=== PATIENT | female | born 1975 | race Caucasian/White ===

== ENCOUNTER → 2017-05-08 14:35 | Outpatient (CLI) | payer OTHER, SELFPAY ==
[2017-05-15 08:14] LABS: HPV HC, High Risk Negative (Negative); HPV Reflexed? YES, CHARGE PATIENT
== END ==
PROVIDERS: Family Provider Family Medicine; PCP Family Medicine; Visit Provider Obstetrics & Gynecology
DX: Z12.4 Encounter for screening for malignant neoplasm of cervix (principal)
CPT/HCPCS: 87624; 88175; G0145

== ENCOUNTER → 2018-08-11 13:59 | Outpatient (CLI) | payer OTHER, SELFPAY ==
[2018-08-19 09:11] LABS: HPV HC, High Risk Negative (Negative); HPV Reflexed? YES, CHARGE PATIENT
== END ==
PROVIDERS: Visit Provider Obstetrics & Gynecology
DX: Z12.4 Encounter for screening for malignant neoplasm of cervix (principal)
CPT/HCPCS: 87624; 88175; G0145

== ENCOUNTER → 2020-01-17 | Outpatient (CLI) | payer OTHER, SELFPAY ==
[2020-01-20 16:49] LABS: HPV APTIMA, High Risk Negative (Negative); HPV Reflexed? YES, CHARGE PATIENT
== END | disposition home or self-care (01) ==
LOC: LABSPEC 15:48
PROVIDERS: Visit Provider Student in an Organized Health Care Education/Training Program
DX: Z12.4 Encounter for screening for malignant neoplasm of cervix (principal)
CPT/HCPCS: 87624; 88175; G0145

== ENCOUNTER 2021-06-04 12:14 | Outpatient (CLI) | payer OTHER, SELFPAY ==
[2021-06-11 15:42] LABS: HPV APTIMA, High Risk Negative (Negative)
== END 2021-06-04 23:59 | disposition home or self-care (01) ==
LOC: LABSPEC 12:26
PROVIDERS: Visit Provider Student in an Organized Health Care Education/Training Program
DX: Z12.4 Encounter for screening for malignant neoplasm of cervix (principal)
CPT/HCPCS: 87624; 88175; G0145

== ENCOUNTER → 2023-10-22 | Outpatient (CLI) | payer OTHER, SELFPAY ==
--- NOTE | 2023-10-22 08:02 | BI_ITS ---
MAMMOGRAPHY - BILATERAL SCREENING REASON FOR EXAM: Female, 48 years old. Routine annual screening examination. PERTINENT HISTORY: Non-contributory. History of prior right breast implant. TECHNIQUE: Digital bilateral breast julieth (3D mammographic acquisition) in the CC and MLO projections. 2-D mediolateral oblique (MLO) and craniocaudad (CC) views of both breasts were obtained. CAD: Full Field Digital Mammography with Computer Added Detection was performed. COMPARISON: Comparison is made with prior outside examination of April 27, 2020. FINDINGS: Breast Composition: The breasts are heterogeneously dense, which may obscure small masses. There are no dominant masses or suspicious calcifications. Stable appearance of the right breast implant. Stable densely calcified nodule in the deep upper central portion of the left breast. No other significant abnormalities are identified. There has been no significant change since the prior study. BI/SCRN MAMM (CAD)W/JULIETH BILAT IMPRESSION: Stable bilateral screening mammogram. Yearly follow-up mammogram recommended. (A) ASSESSMENT CATEGORY: BIRADS Category 2: Benign. A letter regarding these results will be sent to the patient by the facility within 30 days. Approximately 10% of breast cancers are not detected by mammography. A normal mammogram should not delay biopsy of a clinically suspicious abnormality. [id number] Electronically Signed: James Rincon MD at 10:04 EDT ,
== END | disposition home or self-care (01) ==
LOC: OPBI 08:00
DX: Z12.31 Encounter for screening mammogram for malignant neoplasm of breast (principal)
CPT/HCPCS: 77063; 77067

== ENCOUNTER → 2023-10-23 | Outpatient (CLI) | payer OTHER, SELFPAY ==
--- NOTE | 2023-10-23 14:01 | US_ITS ---
STUDY: ULTRASOUND BREAST - RIGHT REASON FOR EXAM: Female, 48 years old. Right breast density. TECHNIQUE: Axial and longitudinal images of the RIGHT breast were performed with a high resolution ultrasound transducer. # OF IMAGES: 37 COMPARISON: Comparison is made with prior mammogram dated October 22, 2023. FINDINGS: RIGHT Breast: The upper half of the right breast was examined with ultrasound. There is a 1.2 cm x 0.9 cm x 0.3 cm fat-containing lymph node at the 11:00 position breast at 3 cm from the nipple. There is also evidence of a 5 mm x 6 mm x 5 mm cyst at the 3:00 position of the breast at 2 cm from the nipple. There is visualization of the breast implant. US/Breast Limited Unilateral IMPRESSION: The mammographic abnormality corresponds to a 5 mm x 6 mm x 5 mm cyst at the 3:00 position of the breast at 2 cm from nipple. There is also evidence of a benign appearing lymph node at the 11:00 position breast at 3 cm from the nipple. ASSESSMENT CATEGORY: BIRADS Category 2: Benign. A letter regarding these results will be sent to the patient by the facility within 30 days. Electronically Signed: James Rincon MD at 14:46 EDT ,
== END | disposition home or self-care (01) ==
DX: R92.8 Other abnormal and inconclusive findings on diagnostic imaging of breast (principal)
CPT/HCPCS: 76642

== ENCOUNTER → 2024-10-24 | Outpatient (CLI) | payer OTHER, SELFPAY ==
--- NOTE | 2024-10-24 15:44 | BI_ITS ---
EXAM: SCRN MAMM (CAD)W/JULIETH BILAT DATE: 10/24/2024 CLINICAL HISTORY: F, Age 49 y/o , SCREENING No family history. Right breast implant. TECHNIQUE: SCRN MAMM (CAD)W/JULIETH BILAT COMPARISON: Prior exam(s) dated October 22, 2023.. FINDINGS: TISSUE DENSITY: Must pick one of these options! Bilateral Breast Mammographic Findings: No significant masses, calcifications or other abnormalities are identified. There is a stable 1.4 cm x 1.1 cm densely calcified nodule in the deep upper lateral aspect of the left breast suggestive of a calcified fibroadenoma. This is unchanged. Stable appearance of the right. No suspicious masses, areas of developing architectural distortion, or suspicious calcifications. There has been no significant interval change. BI/SCRN MAMM (CAD)W/JULIETH BILAT IMPRESSION: Stable examination. OVERALL FINAL ASSESSMENT BI-RADS 2: BENIGN RECOMMENDATION: Routine annual follow-up in 1 Year A letter with findings and recommendations will be mailed to the patient. Reading Location: [facility]
== END | disposition home or self-care (01) ==
LOC: OPBI 15:43
PROVIDERS: Referring Provider Obstetrics & Gynecology; Visit Provider Obstetrics & Gynecology
DX: Z12.31 Encounter for screening mammogram for malignant neoplasm of breast (principal); Z98.82 Breast implant status
CPT/HCPCS: 77063; 77067